=== PATIENT | female | born 1990 | race Hispanic/Latino ===

== ENCOUNTER 2019-06-15 19:11 | Emergency (ER) | payer BC ==
[2019-06-15] MEDS ORDERED: NALOXONE 2 MG/2 ML INJ IV ONE (19:20)
[2019-06-15] MEDS ORDERED: NALOXONE 2 MG/2 ML INJ ONE (19:29)
[2019-06-15] MEDS ORDERED: SODIUM CHLORIDE 0.9% 1000 ML 1,000 ML IV ONE ×3 (19:33→23:56)
--- NOTE | 2019-06-15 19:33 | Emergency Department Report ---
HPI - General Time Seen by Provider: 06/15/19 19:24 - HPI HPI: Room 18 The patient is a 28-year-old female present with a chief complaint of heroin overdose. Patient was brought in by private vehicle unresponsive. Patient was brought back to room 18 where she was administered Narcan and quickly became responsive. Patient admits to taking heroin prior to arrival and methamp hetamines earlier this morning. Patient denies any other coingestants. ED Past Medical Hx - Past Medical History Previous Medical History?: No - Surgical History Past Surgical History?: No - Family History Family history: no significant - Social History Substance Use Type: Heroin, Methamphetamines - Medications Home Medications: Home Medications Medication Instructions Recorded Confirmed Last Taken Type Naloxone HCl [Narcan Nasal [place]] 4 mg NS ONCE PRN #1 spray 06/16/19 Unknown Rx ED Review of Systems ROS: Stated complaint: UNRESPONSIVE Other details as noted in HPI Neurological: other (Unresponsive) Physical Exam - Physical Exam Physical Exam: GENERAL: The patient is well-developed well-nourished female lying on stretcher unresponsive. [] HEENT: Normocephalic. Atraumatic. Pupils 2 mm bilaterally NECK: Supple. CHEST/LUNGS: Poor respiratory effort HEART/CARDIOVASCULAR: Regular. There is no tachycardia. There is no gallop rub or murmur. ABDOMEN: Abdomen is soft, nontender. Patient has normal bowel sounds. There is no abdominal distention. SKIN: There is no rash. There is no edema. There is no diaphoresis. NEURO: The patient is obtunded but becomes responsive after Narcan administration MUSCULOSKELETAL: There is no evidence of acute injury. ED Course - Reevaluation(s) Reevaluation #1: 06/16/19 00:25 Heart rate 98 Patient A&O x4 ED Medical Decision Making - Lab Data Result diagrams: 06/15/19 19:45 06/15/19 19:45 Laboratory Tests 06/15/19 06/15/19 06/15/19 19:45 19:45 19:45 WBC 9.0 RBC 4.98 Hgb 15.2 H Hct 47.9 H MCV 96 MCH 31 MCHC 32 RDW 15.3 H Plt Count 186 Lymph % (Auto) 30.5 [place] % (Auto) 5.6 Eos % (Auto) 3.8 Baso % (Auto) 0.8 Lymph # 2.7 [place] # 0.5 Eos # 0.3 Baso # 0.1 Seg Neutrophils % 59.3 Seg Neutrophils # 5.3 Sodium 137 Potassium 4.1 Chloride 104.1 Carbon Dioxide 16 L Anion Gap 21 BUN 15 Creatinine 0.8 Estimated GFR > 60 BUN/Creatinine Ratio 19 Glucose 211 H Calcium 9.0 Total Bilirubin 0.30 AST 21 ALT 20 Alkaline Phosphatase 92 Total Creatine Kinase 54 CK-MB (CK-2) 1.9 CK-MB (CK-2) Rel Index 3.5 Troponin T < 0.010 Total Protein 7.4 Albumin 3.9 Albumin/Globulin Ratio 1.1 HCG, Qual Urine Opiates Screen Urine Methadone Screen Ur Barbiturates Screen Ur Phencyclidine Scrn Ur Amphetamines Screen U Benzodiazepines Scrn Urine Cocaine Screen U Marijuana (THC) Screen Drugs of Abuse Note Plasma/Serum Alcohol < 0.01 06/15/19 06/15/19 19:45 Unknown WBC RBC Hgb Hct MCV MCH MCHC RDW Plt Count Lymph % (Auto) [place] % (Auto) Eos % (Auto) Baso % (Auto) Lymph # [place] # Eos # Baso # Seg Neutrophils % Seg Neutrophils # Sodium Potassium Chloride Carbon Dioxide Anion Gap BUN Creatinine Estimated GFR BUN/Creatinine Ratio Glucose Calcium Total Bilirubin AST ALT Alkaline Phosphatase Total Creatine Kinase CK-MB (CK-2) CK-MB (CK-2) Rel Index Troponin T Total Protein Albumin Albumin/Globulin Ratio HCG, Qual Negative Urine Opiates Screen Presumptive negative Urine Methadone Screen Presumptive negative Ur Barbiturates Screen Presumptive negative Ur Phencyclidine Scrn Presumptive negative Ur Amphetamines Screen Presumptive positive U Benzodiazepines Scrn Presumptive negative Urine Cocaine Screen Presumptive negative U Marijuana (THC) Screen Presumptive positive Drugs of Abuse Note Disclamer Plasma/Serum Alcohol - EKG Data -: EKG Interpreted by Nm EKG shows normal: sinus rhythm Rate: tachycardia (126 bpm) - EKG Data When compared to previous EKG there are: previous EKG unavailable Interpretation: other (No ischemic changes seen) - Differential Diagnosis Heroin overdose Critical care attestation.: If time is entered above; I have spent that time in minutes in the direct care of this critically ill patient, excluding procedure time. ED Disposition Clinical Impression: Heroin overdose, Polysubstance abuse Disposition: DC-01 TO HOME OR SELFCARE Is pt being admited?: No Does the pt Need Aspirin: No Condition: Stable Instructions: Narcotic Abuse (ED) Additional Instructions: Return to the emergency department should you develop worsening symptoms, inability to tolerate food or liquids, high fever or any other concerns Prescriptions: Naloxone HCl [Narcan Nasal [place]] 4 mg NS ONCE PRN #1 spray PRN Reason: Overdose Referrals: PRIMARY CARE, [Primary Care Provider] - 3-5 Days [facility] [Outside] - 3-5 Days Time of Disposition: 00:27
--- NOTE | 2019-06-15 19:59 | XRay Report ---
CHEST 1 VIEW INDICATION / CLINICAL INFORMATION: Unresponsive status post heroin overdose. COMPARISON: None available. FINDINGS: SUPPORT DEVICES: None. HEART / MEDIASTINUM: No significant abnormality. LUNGS / PLEURA: No significant pulmonary or pleural abnormality. No pneumothorax. ADDITIONAL FINDINGS: No significant additional findings. IMPRESSION: 1. No significant change Signer Name: Gorge Molina MD Signed: 06/15/2019 7:55 PM Workstation Name: [id number]
[2019-06-15 20:43] LABS: Basophils # (Auto) 0.1 K/mm3 (0.0-0.1); Basophils % (Auto) 0.8 % (0.0-1.8); Eosinophils # (Auto) 0.3 K/mm3 (0.0-0.4); Eosinophils % (Auto) 3.8 % (0.0-4.3); Hematocrit 47.9 % (30.3-42.9); Hemoglobin 15.2 gm/dl (10.1-14.3); Lymphocytes # (Auto) 2.7 K/mm3 (1.2-5.4); Lymphocytes % (Auto) 30.5 % (13.4-35.0); Mean Corpuscular HGB Conc 32 % (30-34); Mean Corpuscular Volume 96 fl (79-97); Monocytes # (Auto) 0.5 K/mm3 (0.0-0.8); Monocytes % (Auto) 5.6 % (0.0-7.3); Platelet Count 186 K/mm3 (140-440); Red Blood Count 4.98 M/mm3 (3.65-5.03); Red Cell Distribution Width 15.3 % (13.2-15.2)
[2019-06-15 20:48] LABS: Alanine Aminotransferase 20 units/L (7-56); Albumin 3.9 g/dL (3.9-5); BUN/Creatinine Ratio 19; Blood Urea Nitrogen 15 mg/dL (7-17); Creatine Kinase MB 1.9 ng/mL (0.0-4.0); Hemolysis Index 31
[2019-06-15 23:50] LABS: Benzodiazepines Screen,Urine PRESUMPTIVE NEGATIVE; Cocaine Screen,Urine PRESUMPTIVE NEGATIVE; Methadone Screen,Urine PRESUMPTIVE NEGATIVE; Opiate Screen,Urine PRESUMPTIVE NEGATIVE
[2019-06-15] MEDS ORDERED: SODIUM CHLORIDE 0.9% 1000 ML 1,000 ML ONE (23:57)
[2019-06-15 23:59] LABS: Amphetamine Screen,Urine PRESUMPTIVE POSITIVE
[2019-06-16] LABS: Cannabinoid Screen,Urine PRESUMPTIVE POSITIVE
[2019-06-16 00:32] VITALS: BP 111/71
== END 2019-06-16 01:33 | disposition home or self-care (01) ==
LOC: ED 19:11
DX: T40.1X1A Poisoning by heroin, accidental (unintentional), initial encounter (principal); T43.621A Poisoning by amphetamines, accidental (unintentional), initial encounter; F19.10 Other psychoactive substance abuse, uncomplicated; Y92.89 Other specified places as the place of occurrence of the external cause
CPT/HCPCS: 36415; 71045; 80053; 80307; 82550; 82553; 84484; 84703; 85025; 93005; 93010; 96361; 96374; 99284; J2310; J7030; 80320; G0480